=== PATIENT | female | born 1965 | race Hispanic/Latino ===

== ENCOUNTER 2021-04-20 20:38 | Emergency (ER) | payer OTHER ==
[~2021-04-20] VITALS: Ht 157.5 cm; Wt 86.2 kg
[2021-04-20] MEDS ORDERED: CASIRIVIMAB/IMDEVIMAB 10 ML in SODIUM CHLORIDE 0.9% 100 ML IV ONE (20:45)
[2021-04-20] MEDS ORDERED: SODIUM CHLORIDE 0.9% 100 ML ONE (20:58)
[2021-04-20] MEDS ORDERED: ACETAMINOPHEN 325 MG TAB PO ONE (21:00)
== END 2021-04-20 22:39 | disposition home or self-care (01) ==
LOC: ER 20:50
DX: U07.1 COVID-19 (principal); R50.9 Fever, unspecified; R05.9 Cough, unspecified
CPT/HCPCS: 99282; J7050